=== PATIENT | female | born 1930 | race African-American/Black ===

== ENCOUNTER 2018-05-30 23:49 | Emergency (ER) | payer MEDICARE, OTHER ==
[~2018-05-30] VITALS: Ht 170.2 cm; Wt 72.6 kg
[~2018-05-30 23:49] MED LIST: ALEVE220 MG PO; AMOX-CLAV 875-1 EACH PO; ASPIRIN EC325 MG PO; ATORVASTATIN CA20 M1 PO; CALCIUM 600-D 61 TAB PO; COLACE100 MG PO; DOCUSATE SODIU100 MG PO; ELIQUIS2.5 M1 PO; FERROUS SULFAT325 M1 PO; FUROSEMIDE40 MG PO; GUAIFENESIN-COD10 ML PO; IMODIUM2 MG PO; LEVOTHYROXINE0.1 M1 PO; LISINOPRIL10 MG PO; LOPRESSOR 12.12.5 MG PO; LOSARTAN POTASS25 M1 PO; MAALOX PLUS30 ML PO; MAALOX PO; MACROBID100 MG PO; NASONEX17 GM NASB; PANTOPRAZOLE SO40 MG PO; PERCOCET 325 MG1 TA2 PO; PLAVIX 75MG TAB75 MG PO; SIMVASTATIN40 MG PO; VOLTAREN GEL1% TOP; ZITHROMAX250 M2 PO
--- NOTE | 2018-05-31 00:30 | ED AMS/SEIZURE/WEAK/DIZZY ---
History of Present Illness General Chief Complaint: General Adult Stated Complaint: BIBA GENERALIZED WEAKNESS Source: patient, old records, EMS Exam Limitations: no limitations Vital Signs & Intake/Output Vital Signs & Intake/Output Vital Signs Date Time Temp Pulse Resp B/P B/P Pulse O2 O2 Flow FiO2 Mean Ox Delivery Rate 05/31 0116 100 Room Air 05/31 0000 96.8 63 18 108/56 100 Room Air Allergies Coded Allergies: NO KNOWN ALLERGIES (NO) (02/12/13) Reconcile Medications Apixaban (Eliquis) 2.5 MG TABLET 2.5 MG PO Q12H anticoagulant Aspirin E.c. (Ecotrin) 325 MG ECT 1 TAB PO DAILY HEART HEALTH Atorvastatin Calcium 20 MG TABLET 20 MG PO 1700 heart health Diclofenac Sodium (Voltaren) 1 % GEL..GRAM. 1 GM TOP 4 TIMES/DAY PRN JOINTS ( Reported) Ferrous Sulfate 325 MG TAB 1 TAB PO DAILY SUPPLEMENT Levothyroxine Sodium 0.1 MG TAB 1 TAB PO DAILY AC THYROID (Reported) Losartan Potassium 25 MG TABLET 1 TAB PO DAILY HEART (Reported) Metoprolol Tartrate (Lopressor) 12.5 MG TAB 1 TAB PO BID BLOOD PRESSURE Mometasone Furoate (Nasonex) 17 GM SPRAY.PUMP 2 SPRAY NASB DAILY SINUS INFECTION (Reported) Naproxen Sodium (Aleve) 220 MG TABLET 1 TAB PO PRN PAIN (Reported) Pantoprazole Sodium 40 MG TABLET.DR 1 TAB PO DAILY AC GI (Reported) Triage Note: PER EMS ? FAILURE TO THRIVE, BED RIDDEN AT BASELINE PER EMS CALLED FOR COUGH, UPON THEIR ARRIVAL PT CO BACK PAIN AND CHEST DISCOMFORT UNABLE TO OBTAIN IV ACCESS FAMILY AT BEDSIDE Triage Nurses Notes Reviewed? yes HPI: Patient presents for evaluation of "not feeling good" over the past 2 days. The patient herself is a poor historian secondary to dementia. When asked she stated "I feel pretty good". According to the family however she has had a decreased PO intake along with coughing particularly at night. Family spoke with primary care physician a few days ago and was given a cough medication. She has had a stuffy nose but otherwise no apparent fever. Patient does experience chest pain and back pain with coughing. There is a question of whether or not she is producing phlegm with her cough. The daughter is currently ill with what appears to be a cold. There has been no recent travel. Patient is a nonsmoker. Past History Travel History Traveled to [place] past 21 day No Medical History Any Pertinent Medical History? 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 DAUGHTER (hypertension). Relation not specified for: *No pertinent family history Hx Contributory? No Review of Systems Review of Systems Constitutional: Reports: weakness. EENTM: Reports: no symptoms. Respiratory: Reports: no symptoms. Cardiovascular: Reports: no symptoms. GI: Reports: no symptoms. Genitourinary: Reports: no symptoms. Musculoskeletal: Reports: no symptoms. Skin: Reports: no symptoms. Neurological/Psychological: Reports: no symptoms. Hematologic/Endocrine: Reports: no symptoms. Immunologic/Allergic: Reports: no symptoms. All Other Systems: Reviewed and Negative Physical Exam Physical Exam General Appearance: see below Comments: Exam is limited secondary to the patient's inconsistent cooperation. Gen.: Well-nourished, well-developed, no acute respiratory distress. Head: Normocephalic, atraumatic. Eyes: Normal inspection bilaterally Ears: Normal inspection bilaterally Nose: Normal inspection Throat/mouth : Moist mucosa , no oropharyngeal erythema soft tissue swelling or exudates Neck: Supple, full range of motion, no goiter Heart: Slightly irregular rate and rhythm, no murmurs rubs or gallops Lungs: Clear to auscultation bilaterally (with poor inspiratory effort secondary to the patient's inability to cooperate with exam) Chest: Nontender Back: Normal range of motion Abdomen: Soft, nontender, nondistended, normal bowel sounds Extremities: Normal range of motion grossly, equal radial pulses, no cyanosis clubbing or edema, no calf tenderness Neurologic: Cranial nerves grossly intact, speech is clear, unable to test dysmetria Skin: warm and dry Psychiatric: Calm, inconsistently cooperative, otherwise unable to assess further secondary to paucity of speech Core Measures ACS in differential dx? No CVA/TIA Diagnosis No Sepsis Present: No Sepsis Focused Exam Completed? No Progress Differential Diagnosis: arrythmia, anemia, CVA/stroke, dehydration, electrolyte imbalance, hypoglycemia, hypoxia, hypothyroidism Plan of Care: Orders Procedure Date/time Status URINALYSIS 05/31 48 Active TSH REFLEX 05/31 48 Complete TROPONIN LEVEL 05/31 48 Complete CBC WITHOUT DIFFERENTIAL 05/31 48 Complete BASIC METABOLIC PANEL 05/31 48 Complete EKG 05/31 0004 Active Laboratory Tests 05/31/18 0110: Anion Gap 8, Estimated GFR > 60, BUN/Creatinine Ratio 23.3, Glucose 107 H, Calcium 9.3, Troponin I 0.09, TSH &T3 &Free T4 Intrp 1.970, CBC w Diff NO MAN DIFF REQ, RBC 4.77, MCV 76.8 L, MCH 24.0 L, MCHC 31.2 L, RDW 14.3, MPV 8.5, Gran % 51.2, Lymphocytes % 32.7, Monocytes % 9.1, Eosinophils % 6.4 H, Basophils % 0.6, Absolute Granulocytes 3.7, Absolute Lymphocytes 2.4, Absolute Monocytes 0.7 H, Absolute Eosinophils 0.5, Absolute Basophils 0 Diagnostic Imaging: Discussed w/RAD: Radiology Read. CXR Impression: PATIENT: MEAGAN RUIZ PRESENT AGE: 87 PATIENT ACCOUNT NO: [id number] : 31 LOCATION: [facility] ORDERING PHYSICIAN: Brent Dickinson MD SERVICE DATE: 05/31/18 EXAM TYPE: RAD - XRY-PORTABLE CHEST XRAY EXAMINATION: XR PORTABLE CHEST CLINICAL INFORMATION: Infiltrate, cough. COMPARISON: CT chest 03/16/2016 TECHNIQUE: Portable frontal view of the chest was obtained. FINDINGS: The cardiac silhouette is enlarged, as on the prior exam. There is tortuosity/ectasia of the thoracic aorta, which appears similar when compared to the [facility] tax radiograph of the CT chest dated 03/16/2016. No focal lung opacity identified. No pneumothorax or large pleural effusion. Asymmetric elevation of the right hemidiaphragm. IMPRESSION: Cardiomegaly without overt pulmonary edema or focal lung consolidation. Tortuosity/ectasia of the thoracic aorta, as before. DICTATED BY: Luis Davison MD DATE/TIME DICTATED: 05/31/18120 BUNK ASSEMBLER:NIKKI DATE/TIME TRANSCRIBED:05/31/18120 CONFIDENTIAL, DO NOT COPY WITHOUT APPROPRIATE AUTHORIZATION. <Electronically signed in Other Vendor System> SIGNED BY: Luis Davison MD 05/31/18125 Initial ED EKG: rate (71), AFIB Prior EKG: unchanged Comments: 05/31/2018 2:52:00 AM I have updated Meagan's family on test results. They have concluded that IV fluids are not necessary at this point given the normal renal functions on testing. In addition they feel that obtaining a straight catheter urine specimen might be too uncomfortable for her. Given her dementia she wouldn't understand the reasoning behind it. They have requested an antibiotic for the possibility of urinary tract infection. She has been given a prescription for cough medication but had been only administering this twice daily. They were concerned about her coughing earlier today so I have suggested they give the cough medication 3-4 times per day if needed. They will also encourage fluids and will contact patient's primary care doctor today to arrange for follow-up appointment. Currently Meagan is sleeping comfortably. We have discussed the possibility that the patient is suffering from an early viral syndrome. Departure Departure Disposition: HOME OR SELF CARE Condition: Stable Clinical Impression Primary Impression: Coughing Referrals: Gilbert Ga MD Additional Instructions: You may provide the Robitussin DM up to 4 times daily if necessary. Encourage fluids. Macrobid as prescribed for the possibility of urinary tract infection. Contact Dr. PERES today and arrange for follow-up appointment. Return if any concerns or sudden worsening. Departure Forms: Customer Survey General Discharge Information Prescriptions: Current Visit Scripts Nitrofurantoin Monohyd/M-Cryst (Macrobid 100 MG Capsule) 1 CAP PO BID #6 CAP with food
--- NOTE | 2018-05-31 01:26 | RADIOLOGY REPORT ---
EXAMINATION: XR PORTABLE CHEST CLINICAL INFORMATION: Infiltrate, cough. COMPARISON: CT chest 03/16/2016 TECHNIQUE: Portable frontal view of the chest was obtained. FINDINGS: The cardiac silhouette is enlarged, as on the prior exam. There is tortuosity/ectasia of the thoracic aorta, which appears similar when compared to the records specialist radiograph of the CT chest dated 03/16/2016. No focal lung opacity identified. No pneumothorax or large pleural effusion. Asymmetric elevation of the right hemidiaphragm. IMPRESSION: Cardiomegaly without overt pulmonary edema or focal lung consolidation. Tortuosity/ectasia of the thoracic aorta, as before.
[2018-05-31 01:30] LABS: ABSOLUTE BASOPHIL COUNT 0 /CUMM (0.0-0.2); ABSOLUTE EOSINOPHIL COUNT 0.5 /CUMM (0.0-0.7); ABSOLUTE GRANULOCYTE CT 3.7 /CUMM (1.4-6.5); ABSOLUTE LYMPH COUNT 2.4 /CUMM (1.2-3.4); ABSOLUTE MONOCYTE COUNT 0.7 /CUMM (0.10-0.60); BASOPHIL % 0.6 % (0.0-2.0); EOSINOPHIL % 6.4 % (0-5); GRANULOCYTE % 51.2 % (42.2-75.2); HEMATOCRIT 36.6 % (37-47); MEAN CORPUSCULAR HGB CONC 31.2 G/DL (33.0-37.0); MEAN CORPUSCULAR VOLUME 76.8 FL (81.0-99.0); MEAN PLATELET VOLUME 8.5 FL (7.4-10.4); PLATELET COUNT 330 /CUMM (130-400); RBC DISTRIBUTION WIDTH 14.3 % (11.5-14.5); RED BLOOD CELL CT 4.77 /CUMM (4.20-5.40); WHITE BLOOD CELL COUNT 7.3 /CUMM (4.8-10.8)
[2018-05-31] MEDS ORDERED: MACROBID 100 M100 MG PO (02:55)
[2018-05-31 03:11] VITALS: BP 103/60
== END 2018-05-31 03:14 ==
LOC: ERH 23:49
PROVIDERS: Emergency Medicine
DX: R05 Cough (principal); R09.81 Nasal congestion; R07.9 Chest pain, unspecified; M54.9 Dorsalgia, unspecified; I10 Essential (primary) hypertension; F03.90 Unspecified dementia, unspecified severity, without behavioral disturbance, psychotic disturbance, mood disturbance, and anxiety; I48.92 Unspecified atrial flutter
CPT/HCPCS: 71045; 93005; 93010